=== PATIENT | male | born 1975 | race Caucasian/White ===

== ENCOUNTER 2018-11-21 18:41 | Emergency (ER) | payer OTHER ==
[~2018-11-21] VITALS: Ht 175.2 cm; Wt 120.2 kg
[2018-11-21 19:45] VITALS: BP 166/87
== END 2018-11-21 20:16 | disposition short-term general hospital (02) ==
LOC: ED 18:41
DX: S82.301A Unspecified fracture of lower end of right tibia, initial encounter for closed fracture (principal); S82.831A Other fracture of upper and lower end of right fibula, initial encounter for closed fracture; V89.2XXA Person injured in unspecified motor-vehicle accident, traffic, initial encounter; Y93.89 Activity, other specified; Y92.89 Other specified places as the place of occurrence of the external cause; Y99.8 Other external cause status

== ENCOUNTER 2022-01-18 09:04 | Emergency (ER) | payer OTHER ==
[~2022-01-18] VITALS: Ht 185.4 cm; Wt 136.1 kg
[2022-01-18 09:19] VITALS: BP 122/80
[2022-01-18] MEDS ORDERED: BACLOFEN 10 MG TABLE (09:21)
[2022-01-18] MEDS ORDERED: PAROXETINE HCL10 MG PO (09:21)
[2022-01-18] MEDS ORDERED: MIRTAZAPINE15 M2 PO (09:21)
[2022-01-18] MEDS ORDERED: BUSPIRONE HCL10 MG PO (09:21)
[2022-01-18] MEDS ORDERED: HYDROCHLOROTHIA25 M1 PO (09:22)
[2022-01-18] MEDS ORDERED: GOOD NEIGHBOR L10 MG PO (09:22)
[2022-01-18] MEDS ORDERED: AMLODIPINE BESY10 MG PO (09:22)
[2022-01-18] MEDS ORDERED: MAGNESIUM250 M2 PO (09:22)
[2022-01-18] MEDS ORDERED: CYCLOBENZAPRINE10 MG PO (09:22)
[2022-01-18] MEDS ORDERED: LISINOPRIL40 MG PO (09:23)
[2022-01-18] MEDS ORDERED: FAMOTIDINE40 MG PO (09:23)
[2022-01-18] MEDS ORDERED: FENOFIBRATE48 M1 PO (09:23)
[2022-01-18] MEDS ORDERED: SIMVASTATIN10 MG PO (09:24)
[2022-01-18] MEDS ORDERED: HYDROCODONE-AC1 EAC1 PO (10:42)
== END 2022-01-18 10:50 | disposition home or self-care (01) ==
LOC: ED 09:04
DX: S82.401A Unspecified fracture of shaft of right fibula, initial encounter for closed fracture (principal); Z79.899 Other long term (current) drug therapy; X58.XXXA Exposure to other specified factors, initial encounter; Y93.89 Activity, other specified; Y92.89 Other specified places as the place of occurrence of the external cause; Y99.8 Other external cause status

== ENCOUNTER → 2022-01-20 | Outpatient (CLI) | payer OTHER ==
[~2022-01-20] MED LIST: AMLODIPINE BESY10 MG PO; BACLOFEN 10 MG TABLE; BUSPIRONE HCL10 MG PO; CYCLOBENZAPRINE10 MG PO; FAMOTIDINE40 MG PO; FENOFIBRATE48 M1 PO; GOOD NEIGHBOR L10 MG PO; HYDROCHLOROTHIA25 M1 PO; HYDROCODONE-AC1 EAC1 PO; LISINOPRIL40 MG PO; MAGNESIUM250 M2 PO; MIRTAZAPINE15 M2 PO; PAROXETINE HCL10 MG PO; SIMVASTATIN10 MG PO
== END | disposition home or self-care (01) ==
LOC: ORTHO 01:42
PROVIDERS: ATTEND Orthopaedic Surgery
DX: S82.831A Other fracture of upper and lower end of right fibula, initial encounter for closed fracture (principal); X58.XXXA Exposure to other specified factors, initial encounter; Y93.89 Activity, other specified; Y92.89 Other specified places as the place of occurrence of the external cause; Y99.8 Other external cause status

== ENCOUNTER → 2022-01-26 | Day surgery (SDC) | payer OTHER ==
[2022-01-22 13:54] LABS: BUN 10 mg/dl (7-24); CHLORIDE 108 mmol/L (98-107); CREATININE 0.73 mg/dL (0.70-1.30); POTASSIUM 3.8 mmol/L (3.5-5.1); SODIUM 139 mmol/L (136-145)
[2022-01-26] VITALS (7 sets, daily range): BP systolic 93–140; BP diastolic 60–73
[~2022-01-26] VITALS: Ht 182.8 cm; Wt 136.1 kg
== END | disposition home or self-care (01) ==
LOC: SDC 01-22 12:30
PROVIDERS: ATTEND Orthopaedic Surgery
DX: S82.64XA Nondisplaced fracture of lateral malleolus of right fibula, initial encounter for closed fracture (principal); S93.421A Sprain of deltoid ligament of right ankle, initial encounter; I10 Essential (primary) hypertension; E78.5 Hyperlipidemia, unspecified; F41.9 Anxiety disorder, unspecified; F32.9 Major depressive disorder, single episode, unspecified; W19.XXXA Unspecified fall, initial encounter; Y93.89 Activity, other specified; Y92.89 Other specified places as the place of occurrence of the external cause; Y99.8 Other external cause status

== ENCOUNTER → 2022-02-10 | Outpatient (CLI) | payer OTHER | END | disposition home or self-care (01) | LOC: ORTHO 01:47 | PROVIDERS: ATTEND Orthopaedic Surgery | DX: S82.64XD Nondisplaced fracture of lateral malleolus of right fibula, subsequent encounter for closed fracture with routine healing (principal); X58.XXXD Exposure to other specified factors, subsequent encounter ==

== ENCOUNTER → 2022-02-24 | Outpatient (CLI) | payer OTHER | END | disposition home or self-care (01) | LOC: ORTHO 01:45 | PROVIDERS: ATTEND Orthopaedic Surgery | DX: S82.64XD Nondisplaced fracture of lateral malleolus of right fibula, subsequent encounter for closed fracture with routine healing (principal); M77.31 Calcaneal spur, right foot; X58.XXXD Exposure to other specified factors, subsequent encounter ==

== ENCOUNTER → 2022-03-08 | Outpatient (CLI) | payer OTHER ==
[2022-03-08 16:15] LABS: BASO # 0.1 10*3/uL (0.0-0.1); BASO % 0.8 % (0.0-1.0); EOS # 0.3 10*3/uL (0.0-0.4); EOS % 3.3 % (1.0-4.0); HEMATOCRIT 41.1 % (42.0-52.0); LYMPH % 42.2 % (27.0-41.0); MEAN CELL VOLUME 87.4 fl (80.0-94.0); MEAN CORPUSCULAR HGB 29.6 pg (27.0-31.0); MEAN CORPUSCULAR HGB CONC 33.8 g/dl (33.0-37.0); MEAN PLATELET VOLUME 10.6 fl (9.6-12.3); MONO # 0.9 10*3/uL (0.1-1.0); NEUT # 4.2 10*3/uL (2.3-7.9); NEUT % 44.1 % (47.0-73.0); PLATELET COUNT AUTOMATED 282 10*3/uL (130-400); RED CELL DISTRI WIDTH 13.2 % (0-14.5); WHITE BLOOD COUNT 9.4 10*3/uL (4.8-10.8)
[2022-03-08 16:50] LABS: ALKALINE PHOSPHATASE 96 U/L (45-117); BUN 15 mg/dl (7-24); CHLORIDE 108 mmol/L (98-107); CHOLESTEROL 141 mg/dL (<200); LDL CHOLESTEROL 73 mg/dL (9-159); POTASSIUM 3.4 mmol/L (3.5-5.1); SGOT/AST 21 IU/L (3-35); SGPT/ALT 73 U/L (12-78); SODIUM 140 mmol/L (136-145); TRIGLYCERIDES 184 mg/dl (<150)
[2022-03-09 10:29] LABS: HEPATITIS A AB, TOTAL Negative (Negative)
[2022-03-09 19:06] LABS: HEPATITIS C QNT HCV Not Detected IU/mL (.)
== END | disposition home or self-care (01) ==
LOC: LAB 15:28
PROVIDERS: ATTEND Nurse Practitioner Family
DX: Z11.3 Encounter for screening for infections with a predominantly sexual mode of transmission (principal); E78.5 Hyperlipidemia, unspecified; F41.9 Anxiety disorder, unspecified; B15.9 Hepatitis A without hepatic coma; Z20.2 Contact with and (suspected) exposure to infections with a predominantly sexual mode of transmission

== ENCOUNTER 2023-08-09 06:19 | Emergency (ER) | payer OTHER ==
[~2023-08-09] VITALS: Ht 177.8 cm; Wt 117.0 kg
[2023-08-09 06:22] VITALS: BP 141/73
[2023-08-09 06:45] LABS: BASO # 0.1 10*3/uL (0.0-0.1); BASO % 0.9 % (0.0-1.0); EOS # 0.1 10*3/uL (0.0-0.4); EOS % 1.9 % (1.0-4.0); HEMATOCRIT 43.7 % (42.0-52.0); LYMPH % 40.2 % (27.0-41.0); MEAN CELL VOLUME 88.3 fl (80.0-94.0); MEAN CORPUSCULAR HGB 30.1 pg (27.0-31.0); MEAN CORPUSCULAR HGB CONC 34.1 g/dl (33.0-37.0); MEAN PLATELET VOLUME 11.2 fl (9.6-12.3); MONO # 0.8 10*3/uL (0.1-1.0); MONO % 10.1 % (3.0-9.0); NEUT # 3.5 10*3/uL (2.3-7.9); NEUT % 46.5 % (47.0-73.0); PLATELET COUNT AUTOMATED 217 10*3/uL (130-400); RED BLOOD COUNT 4.95 10*6/uL (4.50-5.90); RED CELL DISTRI WIDTH 13.8 % (0-14.5); WHITE BLOOD COUNT 7.5 10*3/uL (4.8-10.8)
[2023-08-09 06:57] LABS: ACT PARTIAL THROMBO TIME 30.3 SECONDS (20.0-32.1)
[2023-08-09 07:06] LABS: ALKALINE PHOSPHATASE 87 U/L (46-116); BUN 12 mg/dl (9-23); CHLORIDE 108 mmol/L (98-107); LIPASE 36 U/L (12-53); POTASSIUM 3.8 mmol/L (3.4-5.1); SGPT/ALT 35 U/L (5-49); TOTAL PROTEIN 6.8 gm/dL (6.0-8.0)
== END 2023-08-09 08:51 | disposition home or self-care (01) ==
LOC: ED 06:19
PROVIDERS: Internal Medicine
DX: I83.891 Varicose veins of right lower extremity with other complications (principal); Z98.890 Other specified postprocedural states

== ENCOUNTER 2023-09-19 12:13 | Emergency (ER) | payer OTHER ==
[~2023-09-19] VITALS: Ht 175.2 cm; Wt 122.5 kg
[2023-09-19 12:31] VITALS: BP 166/118
[2023-09-19] MEDS ORDERED: LISINOPRIL40 MG PO (13:11)
== END 2023-09-19 13:16 | disposition home or self-care (01) ==
LOC: ED 12:13
DX: R11.2 Nausea with vomiting, unspecified (principal); R19.7 Diarrhea, unspecified; Z76.0 Encounter for issue of repeat prescription; Z98.890 Other specified postprocedural states; Z87.891 Personal history of nicotine dependence

== ENCOUNTER 2023-11-09 03:57 | Emergency (ER) | payer OTHER ==
[2023-11-09 04:36] VITALS: BP 185/107
[2023-11-09] MEDS ORDERED: LISINOPRIL40 MG PO (04:38)
== END 2023-11-09 05:08 | disposition home or self-care (01) ==
LOC: ED 03:57
DX: I10 Essential (primary) hypertension (principal); Z20.822 Contact with and (suspected) exposure to COVID-19; Z53.29 Procedure and treatment not carried out because of patient's decision for other reasons; Z98.890 Other specified postprocedural states; Z87.891 Personal history of nicotine dependence

== ENCOUNTER 2024-02-01 09:36 | Emergency (ER) | payer SELFPAY ==
[~2024-02-01] VITALS: Ht 175.2 cm; Wt 113.4 kg
[2024-02-01 09:49] VITALS: BP 140/75
[2024-02-01 10:13] LABS: BASO # 0.1 10*3/uL (0.0-0.1); EOS # 0.2 10*3/uL (0.0-0.4); EOS % 1.7 % (1.0-4.0); HEMATOCRIT 43.7 % (42.0-52.0); LYMPH # 2.6 10*3/uL (1.3-4.4); LYMPH % 28.8 % (27.0-41.0); MEAN CELL VOLUME 87.6 fl (80.0-94.0); MEAN CORPUSCULAR HGB 29.3 pg (27.0-31.0); MEAN CORPUSCULAR HGB CONC 33.4 g/dl (33.0-37.0); MEAN PLATELET VOLUME 10.9 fl (9.6-12.3); MONO # 0.7 10*3/uL (0.1-1.0); MONO % 7.9 % (3.0-9.0); NEUT # 5.5 10*3/uL (2.3-7.9); NEUT % 60.3 % (47.0-73.0); PLATELET COUNT AUTOMATED 222 10*3/uL (130-400); RED BLOOD COUNT 4.99 10*6/uL (4.50-5.90); RED CELL DISTRI WIDTH 13.9 % (0-14.5); WHITE BLOOD COUNT 9.2 10*3/uL (4.8-10.8)
[2024-02-01 10:31] LABS: ALKALINE PHOSPHATASE 104 U/L (46-116); BUN 10 mg/dl (9-23); CHLORIDE 105 mmol/L (98-107); POTASSIUM 3.5 mmol/L (3.4-5.1); SGPT/ALT 27 U/L (5-49); TOTAL PROTEIN 6.8 gm/dL (6.0-8.0)
[2024-02-01] MEDS ORDERED: VIBRAMYCIN100 MG PO (12:04)
== END 2024-02-01 12:23 | disposition home or self-care (01) ==
LOC: ED 09:36
PROVIDERS: Internal Medicine
DX: L03.115 Cellulitis of right lower limb (principal); F17.200 Nicotine dependence, unspecified, uncomplicated; Z79.899 Other long term (current) drug therapy